=== PATIENT | female | born 1950 | race African-American/Black ===

== ENCOUNTER 2021-04-25 16:00 | Emergency (ER) | payer BC, MEDICARE, OTHER ==
[~2021-04-25] VITALS: Ht 152.4 cm; Wt 102.9 kg
[2021-04-25 16:14] VITALS: BP 161/116
--- NOTE | 2021-04-25 17:37 | PHYS DOC ---
Past History Additional Past Medical Histor: uterine prolapse (MELL FREEMAN APRN) Past Surgical History: Appendectomy, Cholecystectomy, Hysterectomy, Tonsillectomy (MELL FREEMAN APRN) Adult General Chief Complaint Chief Complaint: VAGINAL BLEEDING HPI HPI Patient is a 70-year-old female presents to the emergency department concerning pessary problems. Patient states she has felt bladder pressure with itching for the past several weeks, patient reports she removed her pessary and noticed her bladder had prolapse so she put her pessary back in place. Patient states she has noticed some vaginal bleeding since then. Noticing when she urinates she sees light pink spotting on the paper when she wipes. Patient denies vaginal discharge or vaginal rashes. States it does seem to itch inside her vagina since replacing her pessary. Patient denies any pain or discomfort at this time. Patient denies recent fever or chills, chest pain shortness of breath nausea, vomiting, diarrhea or constipation. Patient denies any blood in her stool or blood in her urine. Patient reports receiving the COVID-19 vaccination series. Patient reports past surgical history of a hysterectomy, appendectomy, tonsils and adenoids removed. (MELL FREEMAN APRN) Review of Systems Review of Systems 14 body systems of review of systems have been reviewed. See HPI for pertinent positives and negative responses, otherwise all other systems are negative, nonpertinent or noncontributory. Constitutional: Negative except as outlined in HPI above. Skin: Negative except as outlined in HPI above. Eyes: Negative except as outlined in HPI above. HENT: Negative except as outlined in HPI above. Respiratory: Negative except as outlined in HPI above. Cardiovascular: Negative except as outlined in HPI above. GI: Negative except as outlined in HPI above. : Negative except as outlined in HPI above. Musculoskeletal: Negative except as outlined in HPI above. Integument: Negative except as outlined in HPI above. Neurologic: Negative except as outlined in HPI above. Endocrine: Negative except as outlined in HPI above. Lymphatic: Negative except as outlined in HPI above. Psychiatric: Negative except as outlined in HPI above. (MELL FREEMAN APRN) Allergies Allergies Allergies Coded Allergies Type Severity Reaction Last Updated Verified No Known Drug Allergies 04/25/21 No (MELL FREEMAN APRN) Physical Exam Physical Exam Constitutional: Well developed, well nourished, no acute distress, non-toxic appearance. 70-year-old female in no apparent distress. HENT: Normocephalic, atraumatic. Eyes: Conjunctiva normal, no discharge. Neck: Normal range of motion. Cardiovascular: Distal cap refill less than 2 seconds, no cyanosis appreciated. Lungs & Thorax: Patient is in no respiratory distress, no adventitious lung sounds appreciated. Abdomen: Bowel sounds normal, soft, no tenderness, no masses, no pulsatile masses. No bruising or skin discoloration of the abdomen. Skin: Warm, dry, no erythema, no rash. Back: No tenderness, no CVA tenderness. Extremities: No tenderness, no cyanosis, no clubbing, ROM intact, no edema. Neurologic: Alert and oriented X 3, normal motor function, normal sensory function, no focal deficits noted. Psychologic: Affect normal, judgement normal, mood normal. : Vaginal/pelvic examination performed with female ED nurse at bedside for risk professional, external exam without rashes, inflammation, no vaginal discharge appreciated, no infections or cellulitis appreciated, no lesions of the vaginal structures or adjacent structures appreciated. Speculum exam reveals pessary in place, no vaginal bleeding appreciated, thick chunky white discharge appreciated, wet prep obtained. Vaginal buckley not erythematous, pink in color. Patient tolerated well. (MELL FREEMAN APRN) Current Patient Data Vital Signs Vital Signs Date Time Temp Pulse Resp B/P (MAP) Pulse Ox O2 Delivery O2 Flow Rate FiO2 04/25/21 16:14 90 18 161/116 99 Lab Results Microbiology 04/25/21 Wet Prep - Final, Complete (MELL FREEMAN APRN) EKG EKG [] (MELL FREEMAN APRN) Radiology/Procedures Radiology/Procedures [] (MELL FREEMAN APRN) Heart Score C/O Chest Pain: No Risk Factors: Risk Factors: DM, Current or recent (<one month) smoker, HTN, HLP, family history of CAD, obesity. Risk Scores: Risk Factors: DM, Current or recent (<one month) smoker, HTN, HLP, family history of CAD, obesity. (MLEL FREEMAN APRN) Course & Med Decision Making Course & Med Decision Making Pertinent Labs and Imaging studies reviewed. (See chart for details) 70-year-old female, vital signs reviewed, presents to the emergency department c oncerning pessary problems with vaginal bleeding. Physical examination concerning for yeast infection versus bacterial vaginosis, urinalysis assay sent, pelvic examination completed, wet prep sent, GC chlamydia urine ordered. There was no blood noted during vaginal examination. Patient's urine is infected, does show hematuria, the patient's wet prep concerning for bacterial vaginosis. Discussed findings with patient, antibiotic therapy, strict follow-up with [employer] soon, patient states she has appointment on the to see her [employer]. Discussed with the patient all findings and diagnostic testing as well as the need to follow-up with their primary care provider for further evaluation and treatment or return to the ED if any new or worsening symptoms. Strict return precautions were also discussed at length, the patient voiced understanding and agreement with the discharge planning. The patient was nontoxic in appearance, in no apparent distress, and hemodynamically stable at the time of disposition. (MELL FREEMAN APRN) Dragon Disclaimer Dragon Disclaimer This electronic medical record was generated, in whole or in part, using a voice recognition dictation system. (MELL FREEMAN APRN) Attending Co-Sign The patient was seen and interviewed as well as examined at the bedside. The chart was reviewed. The case was discussed. Agree with the plan of care. (SINTIA WATSON DO) Departure Departure: Impression: Primary Impression: Bacterial vaginosis Additional Impression: Urinary tract infection Disposition: HOME / SELF CARE / HOMELESS Condition: GOOD Referrals: RIANA SIMS MD (PCP) Patient Instructions: Bacterial Meningitis, Urinary Tract Infection Additional Instructions: You were seen today in the emergency department for vaginal bleeding and problems with your pessary. A vaginal exam was performed and a culture looking for bacterial vaginosis, yeast, trichomonas was obtained and sent to lab, you do not have a yeast infection, you do not have a trichomonas infection, however it did indicate a bacterial vaginosis infection. Your urine did show signs of infection, therefore as we discussed I am placing you on 2 different antibiotics, you will be on Flagyl 500 mg tablets twice a day for 7 days, you will also be on Keflex 500 mg tablets 4 times a day for 7 days. Please keep your appointment with your [employer] coming up soon. Thank you for visiting our Emergency Department. It was a pleasure taking care of you today in the emergency department and we appreciate you trusting us with your care. If any additional problems come up don't hesitate to return to visit us. Please follow up with your primary care provider so they can plan additional care if needed and know about the problem that you had. If symptoms worsen come back to the Emergency Department. Any concerning symptoms that start such as chest pain, shortness of air, weakness or numbness on one side of the body, running high fevers or any other concerning symptoms return to the ER. EMERGENCY DEPARTMENT GENERAL DISCHARGE INSTRUCTIONS Thank you for coming to [facility] (ED) today and trusting us with you care. We trust that you had a positivie experience in our Emergency Department. If you wish to speak to the department management, you may call the director at [phone]. YOUR FOLLOW UP INSTRUCTIONS ARE FOLLOWS: 1. Do you have a private Doctor? If you do not have a private doctor, please ask for a resource list of physicians or clinics that may be able to assist you with follow up care. 2. The Emergency Physician has interpreted your x-rays. The X-Ray specialist will also review them. If there is a change in the findings, you will be notified in 48 hours when at all possible. 3. A lab test or culture has been done, your results will be reviewed and you will be notified if you need a change in treatment. ADDITIONAL INSTRUCTIONS AND INFORMATION: 1. Your care today has been supervised by a physician who is specially trained in emergency care. Many problems require more than one evaluation for a complete diagnosis and treatment. We recommend that you schedule your follow up appointment as recommended to ensure complete treatment of you illness or injury. If you are unable to obtain follow up care and continue to have a problem, or if your condition worsens, we recommend that you return to the ED. 2. We are not able to safely determine your condition over the phone nor are we able to give sound medical advice over the phone. For these safety reasons, if you call for medical advice we will ask you to come to the ED for further evaluation. 3. If you have any questions regarding these discharge instructions please call the ED at [phone]. SAFETY INFORMATION: In the interest of safety, wellness, and injury prevention; we encourage you to wear your sealbelt, if you smoke; quite smoking, and we encourage family to use a p rotective helmet for bicycling and other sporting events that present an increased risk for head injury. IF YOUR SYMPTOMS WORSEN OR NEW SYMPTOMS DEVELOP, OR YOU HAVE CONCERNS ABOUT YOUR CONDITION; OR IF YOUR CONDITION WORSENS WHILE YOU ARE WAITING FOR YOUR FOLLOW UP APPOINTMENT; EITHER CONTACT YOUR PRIMARY CARE DOCTOR, THE PHYSICIAN WHOSE NAME AND NUMBER YOU WERE GIVEN, OR RETURN TO THE ED IMMEDIATELY. Scripts Metronidazole (FLAGYL) 500 Mg Tablet 1 TAB PO BID for bacterial vaginosis, #14 TAB 0 Refills Prov: MELL RFEEMAN APRN 04/25/21 Cephalexin (CEPHALEXIN) 500 Mg Capsule 1 CAP PO QID for UTI for 7 Days, #28 CAP 0 Refills Prov: MELL FREEMAN APRN 04/25/21 Problem Qualifiers Additional Impression: Urinary tract infection Urinary tract infection type: site unspecified Hematuria presence: with hematuria Qualified Codes: N39.0 - Urinary tract infection, site not specified; R31.9 - Hematuria, unspecified MELL FREEMAN APRN Apr 25, 2021 17:37 SINTIA WATSON DO Apr 26, 2021 06:26
[2021-04-25 17:59] LABS: BILIRUBIN,URINE NEG (NEG); CLARITY,URINE CLOUDY; COLOR,URINE YELLOW; GLUCOSE,URINE NEG (NEG); NITRITE,URINE NEG (NEG); UROBILINOGEN,URINE 0.2 mg/dL (0.2 mg/dL)
[2021-04-25 18:00] LABS: BACTERIA,URINE FEW /HPF (0-FEW); SQUAMOUS EPITHELIAL CELL,UR MANY /LPF; YEAST,URINE PRESENT /HPF
[2021-04-25] MEDS ORDERED: CEPH500C PO (18:22)
[2021-04-25] MEDS ORDERED: METR500T PO (18:22)
[2021-04-25] MEDS ORDERED: metroNIDAZOLE 500 MG TABLET ONE (18:26)
[2021-04-25] MEDS ORDERED: CEPHALEXIN 250 MG CAPSULE ONE (18:26)
[2021-04-25] MEDS ORDERED: metroNIDAZOLE 500 MG TABLET PO ONE (18:30)
[2021-04-25] MEDS ORDERED: CEPHALEXIN 250 MG CAPSULE PO ONE (18:30)
== END 2021-04-25 18:30 | disposition home or self-care (01) ==
LOC: ER 16:00
DX: N76.0 Acute vaginitis (principal); B96.89 Other specified bacterial agents as the cause of diseases classified elsewhere; N39.0 Urinary tract infection, site not specified; Z90.89 Acquired absence of other organs; Z90.49 Acquired absence of other specified parts of digestive tract; Z90.710 Acquired absence of both cervix and uterus
CPT/HCPCS: 36415; 81001; 87086; 87491; 87591; 99284; Q0111

== ENCOUNTER → 2021-07-15 | Outpatient (CLI) | payer BC, MEDICARE, OTHER ==
[~2021-07-15] MED LIST: CEPH500C PO; METR500T PO
--- NOTE | 2021-07-15 14:50 | RAD ---
Study: MG Digital Screen 2d, Bilat Mammo History: Routine screening. Comparison: Most recently on 05/12/2016. Technique: Routine 2D digital mammogram views were obtained bilaterally. Interpretation was assisted with the use of computer-aided detection. Findings: Breast Tissue Density A: The breasts are almost entirely fatty. There are no dominant masses, suspicious microcalcifications, or architectural distortion. Several ca lcifications with benign morphology and distribution are again demonstrated. IMPRESSION: No mammographic evidence of malignancy. Recommend routine screening mammography in one year. BI-RADS category 1: Negative. Patient information is entered into the reminder system with a target due date for the next screening mammogram. "Our facility is accredited by the [employer] Mammography Program." Electronically signed by: TEMITOPE WALLER MD (07/15/2021 2:48 PM) [id number]
== END ==
LOC: MAMMO 09:08
PROVIDERS: ATTEND Family Medicine
DX: Z12.31 Encounter for screening mammogram for malignant neoplasm of breast (principal)
CPT/HCPCS: 77067